=== PATIENT | female | born 1940 | race Asian ===

== ENCOUNTER 2018-07-21 22:46 | Emergency (ER) | payer MEDICARE, MEDICAID ==
[2018-07-21] MEDS ORDERED: EPINEPHRine /Lidocaine 1% 20 mL Vial INJ ONE ×2 (22:58→23:36)
--- NOTE | 2018-07-21 23:29 | ED Physician Chart ---
ED Chief Complaint/HPI - Patient Information Date Seen:: 07/21/18 Time Seen:: 23:00 Chief Complaint:: scalp laceration History of Present Illness:: Few minutes prior to admission the patient tripped and fell striking her right frontal scalp on a door frame. No loss of consciousness. No neck pain. Allergies:: Allergies Allergy/AdvReac Type Severity Reaction Status Date / Time No Known Allergies Allergy Verified 07/21/18 22:56 Vitals:: Vital Signs - 8 hr 07/21/18 22:58 Temp 98.2 F HR 105 RR 17 BP 181/87 O2 Sat % 99 Historian:: Patient, Family Member Review:: Nurse's Note Reviewed ED Review of Systems - Review of Systems General/Constitutional: No fever Skin: Skin lesions Head: No headache Eyes: No loss of vision ENT: No earache Neck: No neck pain Cardio Vascular: No chest pain Pulmonary: No SOB GI: No nausea, No vomiting, No diarrhea G/U: No dysuria Musculoskeletal: No bone or joint pain Endocrine: No polyuria, No polydipsia Psychiatric: No prior psych history Hematopoietic: No bruising Allergic/Immuno: No urticaria Neurological: No syncope ED Past Medical History - Past Medical History Past Medical History: HTN, DM, Dyslipidemia Family History: None Social History: Non Smoker, No Alcohol Surgical History: Appendectomy Psychiatricy History: None Medication: Reviewed Family Medical History - Family Member Son Living Status: Still Living ED Physical Exam - Physical Examination General/Constitutional: Awake, Well-developed, well-nourished, Alert, No distress Other Head comments:: 3 cm laceration right frontal scalp just superior to the hairline Eyes: Lids, conjuctiva normal, PERRL Other Skin comments:: See above ENMT: External ears, nose nl Neck: No nuchal rigidity Respiratory: Nl effort/Exclusion Cardio Vascular: RRR Other Cardio Vascular comments:: 3 had a 6 systolic murmur GI: No tenderness/rebounding/guarding, No organomegaly : No CVA tenderness Extremities: Normal digits & nails Neuro/Psych: Alert/oriented ED Assessment - Assessment Assessment/Comments:: Skin cleansed with Betadine solution; 1% Xylocaine with epi for local anesthesia ; laceration irrigated with normal saline; 5-0 chromic sutures used to close laceration. ED Septic Shock - . Is Septic Shock (SBP<90, OR Lactate>4 mmol\L) present?: No - <6hrs of presentation: Vital Signs: Vital Signs - 8 hr 07/21/18 22:58 Temp 98.2 F HR 105 RR 17 BP 181/87 O2 Sat % 99 ED Reassessment (Disposition) - Reassessment Reassessment Condition:: Improved - Diagnosis Diagnosis:: 4 cm right frontal scalp laceration - Aftercare/Follow up Instructions Aftercare/Follow-Up Instructions:: Refer to Discharge Instructions - Patient Disposition Discharge/Transfer:: Home Condition at Disposition:: Stable, Improved
== END 2018-07-21 23:55 | disposition home or self-care (01) ==
LOC: ER 22:46
DX: S01.01XA Laceration without foreign body of scalp, initial encounter (principal); I10 Essential (primary) hypertension; E11.9 Type 2 diabetes mellitus without complications; E78.5 Hyperlipidemia, unspecified; Z90.49 Acquired absence of other specified parts of digestive tract; W01.190A Fall on same level from slipping, tripping and stumbling with subsequent striking against furniture, initial encounter; Y93.89 Activity, other specified; Y92.89 Other specified places as the place of occurrence of the external cause; Y99.8 Other external cause status
CPT/HCPCS: 12002; X6488; Z7502

== ENCOUNTER 2018-07-28 14:29 | Outpatient (CLI) | payer MEDICARE, MEDICAID ==
--- NOTE | 2018-07-29 08:55 | Diagnostic Imaging Report ---
CT scan of the brain without intravenous contrast HISTORY: status post fall Total DLP equals 339 CTDI equals 17.1 Axial sections were obtained from the base of the skull to the vertex. There is prominence/enlargement of the ventricular system size. Associated enlargement of cerebral sulci and subarachnoid cisterns. Findings are consistent with changes of generalized cerebral atrophy. No acute parenchymal abnormalities. No acute cerebral hemorrhage. Hypodensity is seen within the supratentorial white matter regions without mass effect. The findings may be associated with chronic small vessel ischemic disease. No extra-axial masses or abnormal fluid collections. There is evidence for the minimal subcutaneous soft tissue swelling in the right frontal area with subcutaneous edema no evidence for calvarial fracture. IMPRESSION: 1. No acute abnormalities 2. Cerebral atrophy 3. Supratentorial white matter changes that may reflect chronic small vessel ischemic disease
--- NOTE | 2018-07-29 09:15 | Diagnostic Imaging Report ---
Exam: CT examination of facial bones. HISTORY: Trauma Total DLP equals 339 CTDI equals 2.1. Findings: Multiple contiguous thin section of the facial bones obtained in axial plane with coronal and sagittal construction technique without the demonstration of contrast material. The study demonstrates normal appearance of maxilla and mandible. The visualized paranasal sinuses are well aerated. The orbits are intact. Intraconal content is normal. The optic globes intact. There is no evidence of fracture dislocation. The nasal bones are intact. IMPRESSION: Essentially unremarkable examination of facial bones.
== END 2018-07-28 15:05 | disposition home or self-care (01) ==
LOC: RAD 14:29
PROVIDERS: ATTEND Family Medicine
DX: S09.93XA Unspecified injury of face, initial encounter (principal); G31.89 Other specified degenerative diseases of nervous system; W19.XXXA Unspecified fall, initial encounter; Y93.89 Activity, other specified; Y92.89 Other specified places as the place of occurrence of the external cause; Y99.8 Other external cause status
CPT/HCPCS: 70450-TC; 70486-TC; 70487-TC